=== PATIENT | female | born 1980 | race African-American/Black ===

== ENCOUNTER 2018-10-07 16:21 | Emergency (ER) | payer SELFPAY ==
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
[2018-10-07] MEDS ORDERED: Ketorolac Tromethamine 60 MG/2 ML VIAL ONE (16:56)
[2018-10-07] MEDS ORDERED: Ketorolac Tromethamine 60 MG/2 ML VIAL IM SCH (17:00)
== END 2018-10-07 19:04 | disposition home or self-care (01) ==
LOC: ERS 16:21
DX: S16.1XXA Strain of muscle, fascia and tendon at neck level, initial encounter (principal); E11.9 Type 2 diabetes mellitus without complications; I10 Essential (primary) hypertension; Z79.4 Long term (current) use of insulin; Z79.899 Other long term (current) drug therapy; V43.62XA Car passenger injured in collision with other type car in traffic accident, initial encounter
CPT/HCPCS: 70450; 72125; 96372; G0390; J1885